=== PATIENT | male | born 1950 | race Caucasian/White ===

== ENCOUNTER → 2016-08-12 | Day surgery (SDC) | payer MEDICARE ==
[~2016-08-12] VITALS: Ht 182.9 cm; Wt 83.9 kg
[~2016-08-12] MED LIST: BUPIVACAINE HCL 0.25% 30 ML VIAL As Ordered ONE; BUPIVACAINE LIPOSOME/PF 1.3% 20ML (266MG/20ML) VIAL (EXPAREL) As Ordered ONE; CINN500C9 PO; GLUCTAB6 PO; LR 1,000 ML IV SCH; MAGN1TAB25 PO; MULTLIQ7 PO; NORCO, ANEXSIA 5/325MG TABLET (HYDROcodone/ACETAMINOPHEN) PO PRN; PERCOCET 5MG/325MG TAB PO PRN; PLANTAB PO; POTA80TA PO; fentaNYL 100 MCG/2 ML INJECTION (J3010) IV PRN
[2016-08-12 10:24] VITALS: BP 130/84
--- NOTE | 2016-08-12 23:54 | RO ---
DATE OF PROCEDURE: 08/12/2016 PREOPERATIVE DIAGNOSIS: Umbilical hernia. POSTOPERATIVE DIAGNOSIS: Umbilical hernia. PROCEDURE PERFORMED: Umbilical herniorrhaphy. SURGEON: Dr. Orlando Roche JOB CHECKER: Donna Goyal ANESTHESIA: General. INDICATIONS FOR PROCEDURE: The patient is a 66-year-old man with a small umbilical hernia for repair. DESCRIPTION OF PROCEDURE: The patient was placed under general endotracheal anesthesia. The patient's abdomen was prepped and draped in a sterile fashion. An approximately 3 cm curved infraumbilical transverse incision was made. The incision was deepened to the fascia. The umbilical skin was elevated. He was found to have a small fascial defect with some protruding preperitoneal fat. The peritoneum was not opened. The fibrofatty tissue was reduced beneath the fascia. The fascial edges were cleared. The defect was approximately 1.5 cm maximally. The fascial defect was closed transversely with interrupted simple sutures of #2-0 Ethibond. Some 0.25% Marcaine was infiltrated about the wound. The umbilical skin was tacked down to the fascia with a #3-0 Vicryl. The subcutaneous tissues were closed with Vicryl and the skin edges with a running subcuticular Vicryl as well. Steri-Strips were applied, followed by a light dressing. The patient tolerated the procedure well without apparent complication. He was awakened in the operating room, extubated and moved to the recovery room in stable condition.
== END | disposition home or self-care (01) ==
LOC: M SDC 06:18
PROVIDERS: ATTEND Surgery
DX: K42.9 Umbilical hernia without obstruction or gangrene (principal); K21.9 Gastro-esophageal reflux disease without esophagitis; F41.9 Anxiety disorder, unspecified; F32.9 Major depressive disorder, single episode, unspecified

== ENCOUNTER → 2017-04-12 | Outpatient (REF) | payer MEDICARE ==
[~2017-04-12] MED LIST changes: -BUPIVACAINE HCL 0.25% 30 ML VIAL As Ordered ONE; -BUPIVACAINE LIPOSOME/PF 1.3% 20ML (266MG/20ML) VIAL (EXPAREL) As Ordered ONE; -LR 1,000 ML IV SCH; -NORCO, ANEXSIA 5/325MG TABLET (HYDROcodone/ACETAMINOPHEN) PO PRN; -PERCOCET 5MG/325MG TAB PO PRN; -fentaNYL 100 MCG/2 ML INJECTION (J3010) IV PRN
[2017-04-12 14:45] LABS: ALBUMIN 3.9 GM/DL (3.2-5.2); ALBUMIN/GLOBULIN RATIO 1.44 (1.00-1.93); ALKALINE PHOSPHATASE 72 U/L (45-117); ALT/SGPT 27 U/L (12-78); ANION GAP 8 MEQ/L (8-16); AST/SGOT 13 U/L (15-37); BILIRUBIN,TOTAL 0.4 MG/DL (0.2-1.0); BLOOD UREA NITROGEN 21 MG/DL (7-18); CALCIUM LEVEL 8.8 MG/DL (8.8-10.2); CARBON DIOXIDE LEVEL 26 MEQ/L (21-32); CHLORIDE LEVEL 108 MEQ/L (98-107); CHOLESTEROL LEVEL 196 MG/DL (<200); CREATININE FOR GFR 1.26 MG/DL (0.70-1.30); GLOMERULAR FILTRATION RATE > 60.0 (>49); GLUCOSE, FASTING 100 MG/DL (80-110); POTASSIUM SERUM 4.3 MEQ/L (3.5-5.1); SODIUM LEVEL 142 MEQ/L (136-145); TOTAL PROTEIN 6.6 GM/DL (6.4-8.2); TRIGLYCERIDES LEVEL 148 MG/DL (<150)
== END ==
LOC: M SFHCADAM 08:03
PROVIDERS: ATTEND Family Medicine
DX: M76.62 Achilles tendinitis, left leg (principal); M19.042 Primary osteoarthritis, left hand; Z12.5 Encounter for screening for malignant neoplasm of prostate; Z79.899 Other long term (current) drug therapy
CPT/HCPCS: 80053; 80061; G0103

== ENCOUNTER → 2018-08-08 | Outpatient (REF) | payer MEDICARE ==
[2018-08-08 19:53] LABS: BLOOD UREA NITROGEN 21 MG/DL (7-18); CARBON DIOXIDE LEVEL 26 MEQ/L (21-32); CHLORIDE LEVEL 103 MEQ/L (98-107); CREATININE FOR GFR 1.21 MG/DL (0.70-1.30); GLOMERULAR FILTRATION RATE > 60.0 (>49); GLUCOSE, FASTING 82 MG/DL (70-100); SODIUM LEVEL 139 MEQ/L (136-145)
[2018-08-08 19:54] LABS: ALBUMIN 4.3 GM/DL (3.2-5.2); ALT/SGPT 38 U/L (12-78); BILIRUBIN,TOTAL 0.6 MG/DL (0.2-1.0); CALCIUM LEVEL 8.8 MG/DL (8.8-10.2); CHOLESTEROL LEVEL 247 MG/DL (<200); CHOLESTEROL RISK RATIO 5.488 (<5); FREE T4 1.07 NG/DL (0.76-1.46); HDL CHOLESTEROL 45 MG/DL (>40); LDL CHOLESTEROL 158 MG/DL (<100); NON-HDL-C 202 MG/DL; TOTAL PROTEIN 7.3 GM/DL (6.4-8.2); TRIGLYCERIDES LEVEL 219 MG/DL (<150)
== END ==
LOC: M SFHCADAM 12:32
PROVIDERS: ATTEND Family Medicine
DX: R73.03 Prediabetes (principal); Z12.5 Encounter for screening for malignant neoplasm of prostate; E78.2 Mixed hyperlipidemia; R35.0 Frequency of micturition; E78.5 Hyperlipidemia, unspecified
CPT/HCPCS: 80053; 80061; 83036; 84439; 84443; 87086; G0103

== ENCOUNTER → 2018-10-13 | Outpatient (REF) | payer MEDICARE | LOC: M SFHCPLAZ 17:09 | PROVIDERS: ATTEND Dermatology | DX: D23.39 Other benign neoplasm of skin of other parts of face (principal) ==

== ENCOUNTER → 2019-08-14 | Outpatient (REF) | payer MEDICARE ==
[~2019-08-14] MED LIST changes: -MAGN1TAB25 PO; +MAGN1TAB26 PO
[2019-08-14 13:16] LABS: ALBUMIN 4.2 GM/DL (3.2-5.2); BILIRUBIN,TOTAL 0.7 MG/DL (0.2-1.0); CHOLESTEROL RISK RATIO 5.341 (<5); CREATININE FOR GFR 1.33 MG/DL (0.70-1.30); GLOMERULAR FILTRATION RATE 56.6 (>42); POTASSIUM SERUM 4.6 MEQ/L (3.5-5.1); TOTAL PROTEIN 7.3 GM/DL (6.4-8.2)
[2019-08-14 14:19] LABS: HEMOGLOBIN A1c 7.4 %
== END ==
LOC: M SFHCADAM 09:18
PROVIDERS: ATTEND Family Medicine
DX: E78.5 Hyperlipidemia, unspecified (principal); R73.03 Prediabetes; Z12.5 Encounter for screening for malignant neoplasm of prostate
CPT/HCPCS: 80053; 80061; 83036; G0103

== ENCOUNTER → 2020-09-01 | Outpatient (REF) | payer MEDICARE ==
[2020-09-01 13:52] LABS: ALBUMIN 4.2 GM/DL (3.2-5.2); BILIRUBIN,TOTAL 0.4 MG/DL (0.2-1.0); CALCIUM LEVEL 9.4 MG/DL (8.8-10.2); CHOLESTEROL RISK RATIO 4.88 (<5); CREATININE FOR GFR 1.32 MG/DL (0.70-1.30); GLOMERULAR FILTRATION RATE 56.9 (>42); POTASSIUM SERUM 4.7 MEQ/L (3.5-5.1); TOTAL PROTEIN 6.7 GM/DL (6.4-8.2)
[2020-09-01 14:28] LABS: HEMOGLOBIN A1c 6.8 %
== END ==
LOC: M SFHCADAM 08:57
PROVIDERS: ATTEND Family Medicine
DX: E78.2 Mixed hyperlipidemia (principal); R73.03 Prediabetes; Z12.5 Encounter for screening for malignant neoplasm of prostate
CPT/HCPCS: 80053; 80061; 83036; G0103

== ENCOUNTER 2021-03-09 11:03 | Inpatient (IN) | payer OTHER, MEDICARE ==
[~2021-03-09] VITALS: Ht 182.9 cm; Wt 84.4 kg
[2021-03-09] MEDS ORDERED: ISOVUE-370 76% 100ML VIAL As Ordered ONE (11:45)
[2021-03-09 11:59] LABS: BASO # 0.1 10^3/uL (0.0-0.2); BASO % 0.4 % (0.0-1.0); EOS # 0.1 10^3/uL (0.0-0.5); EOS % 0.9 % (0.0-3.0); HEMATOCRIT 46.4 % (42.0-52.0); HEMOGLOBIN 15.8 g/dl (13.5-17.5); LYMPH # 1.7 10^3/uL (1.5-5.0); LYMPH % 12.6 % (24.0-44.0); MEAN CORPUSCULAR HEMOGLOBIN 31.3 pg (27.0-33.0); MEAN CORPUSCULAR HGB CONC 34.1 g/dl (32.0-36.5); MEAN CORPUSCULAR VOLUME 91.9 fl (80.0-96.0); MONO # 0.8 10^3/uL (0.0-0.8); MONO % 5.8 % (2.0-8.0); NEUTROPHILS # 10.8 10^3/uL (1.5-8.5); NEUTROPHILS % 79.5 % (36.0-66.0); PLATELET COUNT, AUTOMATED 216 10^3/uL (150-450); RED BLOOD COUNT 5.05 10^6/uL (4.30-6.10); WHITE BLOOD COUNT 13.5 10^3/uL (4.0-10.0)
[2021-03-09 12:13] LABS: INR 1.01; PROTHROMBIN TIME 13.7 SECONDS (12.7-14.5)
[2021-03-09 12:14] LABS: PARTIAL THROMBOPLASTIN TIME 28.6 SECONDS (25.9-37.0)
--- NOTE | 2021-03-09 12:17 | REP ---
INDICATION: Trauma. COMPARISON: None. TECHNIQUE: 5 x 5 mm contiguous transaxial sections were obtained from the skull base to the cerebral convexities using helical technique. FINDINGS: The ventricles and sulci are consistent with the patient's age. There are no extra-axial fluid collections. There is no mass effect. The deep cerebral white matter is consistent with the patient's age. The orbital and petrous structures, cerebellopontine angles, and posterior fossa are unremarkable. The sella turcica, cavernous, and paracavernous structures are essentially unremarkable. The visualized portions of the paranasal sinuses and mastoid air cells are clear. Images of the skull base show no gross abnormality. IMPRESSION: Essentially unremarkable CT examination of the brain. <Electronically signed by Jacob Alonso > 03/09/21 [id number]
--- NOTE | 2021-03-09 12:21 | REP ---
INDICATION: Trauma. COMPARISON: None. TECHNIQUE: 2 x 2 mm contiguous helical scanning with sagittal and coronal reconstructions FINDINGS: There is a 2 mm anterolisthesis of C4 on C5. There is C5-6 and C6-7 disc space narrowing with anterior and posterior osteophytic ridging. The facet joints are well aligned bilaterally. Vertebral body height is within normal limits. There is no evidence of an acute fracture. There is no abnormal paraspinal soft tissue swelling.. IMPRESSION: No evidence of an acute fracture. Chronic changes as described above. The anterolisthesis is likely secondary to positioning and chronic ligamentous changes. <Electronically signed by Jacob Alonso > 03/09/21 [id number]
--- NOTE | 2021-03-09 12:23 | REP ---
INDICATION: Trauma COMPARISON: None TECHNIQUE: Axial contrast enhanced images from the thoracic inlet to the upper abdomen with coronal and sagittal reformations using 75 ml Isovue 370 intravenous contrast material. This CT examination was performed using the following dose reduction techniques: Automated exposure control, adjustment of mA and/or kv according to the patient's size, and use of iterative reconstruction technique. FINDINGS: The lung fortune demonstrate lower lobe opacities suggesting atelectasis and or elements of pulmonary parenchymal contusions given history of trauma. No effusion. No pneumothorax. Tracheobronchial tree is patent. Mediastinal structures including thoracic aorta, pulmonary vasculature, and heart/pericardium without evidence for injury. No mediastinal fluid collection or hematoma. Mild incidental atherosclerotic changes to the thoracic aorta and coronary arteries are identified. No evidence for adenopathy. There is a comminuted relatively nondisplaced fracture of the sternum with subtle overlying soft tissue swelling (series 501; images 59-70). Remainder of the osseous structures appear relatively intact. IMPRESSION: 1. Lower lobe opacities likely representing elements of atelectasis and parenchymal contusions. 2. Comminuted relatively nondisplaced fracture swelling. Of the sternum with mild overlying soft tissue <Electronically signed by Car Warren > 03/09/21 [id number]
[2021-03-09 12:26] LABS: ALBUMIN 3.7 GM/DL (3.2-5.2); ALT/SGPT 42 U/L (12-78); AMYLASE 47 U/L (25-115); BILIRUBIN,DIRECT 0.1 MG/DL (0.0-0.2); BILIRUBIN,TOTAL 0.3 MG/DL (0.2-1.0); CK-MB VALUE MASS 1.8 NG/ML (<3.6); CPK CREATINE PHOSPHOKINASE 93 U/L (39-308); LIPASE 131 U/L (73-393); MB/CK RELATIVE INDEX 1.94 (< OR =4); TOTAL PROTEIN 6.6 GM/DL (6.4-8.2); TROPONIN I < 0.02 NG/ML (< 0.10)
--- NOTE | 2021-03-09 12:28 | REP ---
INDICATION: Trauma. COMPARISON: None TECHNIQUE: Axial contrast-enhanced images from the lung bases to the pubic symphysis using 100 cc Isovue 370 intravenous contrast material. Coronal and sagittal reformations obtained. This CT examination was performed using the following dose reduction techniques: Automated exposure control, adjustment of mA and/or kv according to the patient's size, and the use of iterative reconstruction technique. FINDINGS: There is no evidence for solid organ injury. Liver demonstrates few scattered benign appearing cysts measuring up to 1.8 cm diameter. Spleen demonstrates small calcifications suggesting prior granulomatous disease. Kidneys demonstrate age-related cortical thinning and asymmetric large left peripelvic cysts measuring in total 5.4 cm maximal diameter. The enteric system including stomach, small, and large bowel appears normal. No evidence for obstruction or acute inflammatory process. Normal terminal ileum and appendix are identified in the right lower quadrant. Pelvis demonstrates normal bladder and age-appropriate prostate/seminal vesicles. No ascites. No free air. No intraperitoneal or retroperitoneal adenopathy. Abdominal aorta and vasculature appear normal. Incidental retroaortic left renal vein noted. Musculoskeletal structures are intact and without acute trauma/injury. Lung bases demonstrate bibasilar opacities consistent with atelectasis and contusions and nondisplaced comminuted sternal fracture. IMPRESSION: No acute abdominopelvic trauma/injury appreciated. Nonacute findings including hepatic and presumed left renal cysts. <Electronically signed by Car Warren > 03/09/21 [id number]
[2021-03-09] MEDS ORDERED: ONDANSETRON 4MG/2ML VIAL IV ONE (12:35)
[2021-03-09] MEDS: fentaNYL 100 MCG/2 ML INJECTION (J3010) IV PRN ×2 (12:39→13:34)
[2021-03-09 13:27] LABS: RSV AMPLIFICATION NEGATIVE (NEGATIVE)
[2021-03-09] MEDS ORDERED: MORPHINE 4 MG/ML 1ML VIAL/SYRINGE (J2270) IV PRN (13:45)
[2021-03-09] MEDS ORDERED: CHOL1CAP PO (13:48)
[2021-03-09] MEDS ORDERED: CINN500C2 PO (13:48)
[2021-03-09] MEDS ORDERED: D31000TA2 PO (13:48)
[2021-03-09] MEDS ORDERED: MAGN500T12 PO (13:48)
[2021-03-09] MEDS ORDERED: MULTTAB61 PO (13:48)
[2021-03-09] MEDS ORDERED: ZINC1TAB2 PO (13:48)
[2021-03-09] MEDS ORDERED: APPLCAP PO (13:48)
[2021-03-09] MEDS ORDERED: HOME MED LIST COMPLETE! XX SCH (13:50)
[2021-03-09] MEDS: KETOROLAC 30 MG/ML 1ML VIAL IV SCH ×2 (15:19→20:17)
[2021-03-09 16:00] VITALS: BP 157/80
[2021-03-09] MEDS ORDERED: SLF 3 ML SYR IV PRN (16:35)
[2021-03-09] MEDS: NORCO, ANEXSIA 5/325MG TABLET (HYDROcodone/ACETAMINOPHEN) PO PRN ×2 (17:02→23:37)
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
[2021-03-09 20:00] VITALS: BP 151/72
[2021-03-09] MEDS: SLF 3 ML SYR IV SCH (20:33)
--- NOTE | 2021-03-09 21:39 | ECGEPIP ---
[facility] - ED Test Date: 2021-03-09 Pat Name: SHENG ADHIKARI Department: Room: - Gender: Male Returned Item Clerk: : 1950 Requested By: Pillo Tobin Order Number: [id number] Reading MD: Pillo Blanchard Measurements Intervals [place] Rate: 53 P: 52 GA: 166 QRS: -40 QRSD: 88 T: 44 QT: 430 QTc: 403 Interpretive Statements Sinus bradycardia POOR R WAVE PROGRESSION Left axis deviation NO PRIORS FOR COMPARISON Electronically Signed on 03-09-2021 21:39:10 EDT by Pillo Blanchard
[2021-03-09 23:56] VITALS: BP 147/78
[2021-03-10] MEDS: KETOROLAC 30 MG/ML 1ML VIAL IV SCH ×2 (01:39→07:57)
[2021-03-10 04:00] VITALS: BP 132/70
[2021-03-10] MEDS ORDERED: CALCIUM CARBONATE 500 MG CHEW U/D PO PRN (05:00)
[2021-03-10 05:23] LABS: BASO % 0.3 % (0.0-1.0); EOS # 0.3 10^3/uL (0.0-0.5); EOS % 2.2 % (0.0-3.0); HEMATOCRIT 39.9 % (42.0-52.0); LYMPH # 2.7 10^3/uL (1.5-5.0); LYMPH % 22.3 % (24.0-44.0); MEAN CORPUSCULAR HEMOGLOBIN 30.9 pg (27.0-33.0); MEAN CORPUSCULAR HGB CONC 33.6 g/dl (32.0-36.5); MEAN CORPUSCULAR VOLUME 91.9 fl (80.0-96.0); MONO # 1.1 10^3/uL (0.0-0.8); NEUTROPHILS # 7.9 10^3/uL (1.5-8.5); NEUTROPHILS % 65.6 % (36.0-66.0); PLATELET COUNT, AUTOMATED 174 10^3/uL (150-450); RED BLOOD COUNT 4.34 10^6/uL (4.30-6.10); WHITE BLOOD COUNT 12.1 10^3/uL (4.0-10.0)
[2021-03-10 05:26] LABS: HEMOGLOBIN 13.4 g/dl (13.5-17.5)
[2021-03-10] MEDS: NORCO, ANEXSIA 5/325MG TABLET (HYDROcodone/ACETAMINOPHEN) PO PRN (05:39)
[2021-03-10] MEDS: SLF 3 ML SYR IV SCH (05:39)
[2021-03-10 05:46] LABS: ALBUMIN 2.9 GM/DL (3.2-5.2); ALT/SGPT 33 U/L (12-78); AMYLASE 43 U/L (25-115); BILIRUBIN,TOTAL 0.3 MG/DL (0.2-1.0); BLOOD UREA NITROGEN 26 MG/DL (7-18); CALCIUM LEVEL 8.3 MG/DL (8.8-10.2); CARBON DIOXIDE LEVEL 31 MEQ/L (21-32); CHLORIDE LEVEL 107 MEQ/L (98-107); CREATININE FOR GFR 1.18 MG/DL (0.70-1.30); GLOMERULAR FILTRATION RATE > 60.0 (>42); GLUCOSE, FASTING 151 MG/DL (70-100); LIPASE 171 U/L (73-393); POTASSIUM SERUM 3.8 MEQ/L (3.5-5.1); SODIUM LEVEL 141 MEQ/L (136-145)
[2021-03-10 08:00] VITALS: BP 153/72
--- NOTE | 2021-03-10 08:24 | REP ---
INDICATION: sternal fracture COMPARISON: Chest CT dated 03/09/2021 TECHNIQUE: PA and lateral. FINDINGS: Cardiac silhouette is normal. Mediastinum is unremarkable. Lateral view demonstrates known sternal fracture. Lung fortune demonstrate mild bibasilar atelectasis and possible small pleural reactions. No pneumothorax. IMPRESSION: Mild bibasilar atelectasis and possible small pleural reactions. <Electronically signed by Car Warren > 03/10/21 1407
[2021-03-10] MEDS ORDERED: HYDR-3715 PO (10:03)
[2021-03-10] MEDS ORDERED: KETO10TAB PO (10:03)
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
--- NOTE | 2021-03-10 19:59 | ECGEPIP ---
[facility] Test Date: 2021-03-10 Pat Name: SHENG ADHIKARI Department: Room: [place] [address] Gender: Male Program Supervisor: manolo : 1950 Requested By: REMEDIOS Austin Order Number: [id number] Reading MD: Mp Sinclair Measurements Intervals [place] Rate: 54 P: 41 TX: 156 QRS: -33 QRSD: 86 T: 16 QT: 418 QTc: 396 Interpretive Statements Sinus bradycardia Left axis deviation Delayed anterior R wave progression Nonspecific T wave abnormality Similar to tracing done 03-09-21 Electronically Signed on 03-10-2021 19:59:00 EDT by Mp Sinclair
== END 2021-03-10 12:26 | disposition home or self-care (01) | DRG 135 ==
LOC: EDBD 11:03 → M ED 11:03 → M ED INP 13:43 → ENRESERV 14:30 → M PCU 16:22
PROVIDERS: ADMIT Surgery; ATTEND Surgery
DX: S22.20XA Unspecified fracture of sternum, initial encounter for closed fracture (principal); S27.322A Contusion of lung, bilateral, initial encounter; M17.0 Bilateral primary osteoarthritis of knee; N40.0 Benign prostatic hyperplasia without lower urinary tract symptoms; N52.9 Male erectile dysfunction, unspecified; K21.9 Gastro-esophageal reflux disease without esophagitis; Z20.822 Contact with and (suspected) exposure to COVID-19; Z79.899 Other long term (current) drug therapy; E78.5 Hyperlipidemia, unspecified; V43.52XA Car driver injured in collision with other type car in traffic accident, initial encounter; Y92.410 Unspecified street and highway as the place of occurrence of the external cause; Y99.8 Other external cause status; Y93.89 Activity, other specified

== ENCOUNTER → 2021-04-16 | Outpatient (CLI) | payer OTHER, MEDICARE ==
[~2021-04-16] MED LIST changes: +APPLCAP PO; +CHOL1CAP PO; +CINN500C2 PO; +D31000TA2 PO; +HYDR-3715 PO; +KETO10TAB PO; +MAGN500T12 PO; +MULTTAB61 PO; +ZINC1TAB2 PO
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
== END ==
LOC: M RAD 08:15
PROVIDERS: ATTEND Surgery
DX: S22.23XD Sternal manubrial dissociation, subsequent encounter for fracture with routine healing (principal); W18.30XD Fall on same level, unspecified, subsequent encounter; Y92.009 Unspecified place in unspecified non-institutional (private) residence as the place of occurrence of the external cause

== ENCOUNTER → 2021-05-22 | Outpatient (CLI) | payer MEDICARE | LOC: M LABSMTC 11:13 | PROVIDERS: ATTEND Family Medicine | DX: Z11.52 Encounter for screening for COVID-19 (principal) | CPT/HCPCS: C9803; U0003 ==

== ENCOUNTER → 2021-06-03 | Outpatient (REF) | payer MEDICARE ==
[2021-06-03 12:53] LABS: HEMOGLOBIN A1c 6.8 %
[2021-06-03 13:09] LABS: BLOOD UREA NITROGEN 24 MG/DL (7-18); CALCIUM LEVEL 10.1 MG/DL (8.8-10.2); CARBON DIOXIDE LEVEL 30 MEQ/L (21-32); CHLORIDE LEVEL 104 MEQ/L (98-107); CREATININE FOR GFR 1.23 MG/DL (0.70-1.30); GLOMERULAR FILTRATION RATE > 60.0 (>42); GLUCOSE, FASTING 148 MG/DL (70-100); SODIUM LEVEL 140 MEQ/L (136-145)
== END ==
LOC: M SFHCADAM 08:13
PROVIDERS: ATTEND Family Medicine
DX: E11.9 Type 2 diabetes mellitus without complications (principal)

== ENCOUNTER → 2021-09-03 | Outpatient (REF) | payer MEDICARE | LOC: M LAB REF 17:00 | PROVIDERS: ATTEND Family Medicine | DX: C44.329 Squamous cell carcinoma of skin of other parts of face (principal) ==

== ENCOUNTER → 2021-12-16 | Outpatient (CLI) | payer MEDICARE ==
[~2021-12-16] MED LIST changes: -D31000TA2 PO; -GLUCTAB6 PO; +GLUCTAB7 PO; +VITA100093 PO
[2021-12-16 13:07] LABS: HEMATOCRIT 45.3 % (42.0-52.0); HEMOGLOBIN 15.2 g/dl (13.5-17.5); MEAN CORPUSCULAR HEMOGLOBIN 31.3 pg (27.0-33.0); MEAN CORPUSCULAR HGB CONC 33.6 g/dl (32.0-36.5); MEAN CORPUSCULAR VOLUME 93.4 fl (80.0-96.0); PLATELET COUNT, AUTOMATED 172 10^3/uL (150-450); RED BLOOD COUNT 4.85 10^6/uL (4.30-6.10)
[2021-12-16 13:31] LABS: HEMOGLOBIN A1c 6.1 %
[2021-12-16 13:43] LABS: ALBUMIN 3.8 GM/DL (3.2-5.2); ALT/SGPT 30 U/L (12-78); BILIRUBIN,TOTAL 0.4 MG/DL (0.2-1.0); BLOOD UREA NITROGEN 27 MG/DL (7-18); CALCIUM LEVEL 8.9 MG/DL (8.8-10.2); CARBON DIOXIDE LEVEL 26 MEQ/L (21-32); CHLORIDE LEVEL 111 MEQ/L (98-107); CHOLESTEROL LEVEL 182 MG/DL (<200); CHOLESTEROL RISK RATIO 4.044 (<5); CREATININE FOR GFR 1.22 MG/DL (0.70-1.30); GLOMERULAR FILTRATION RATE > 60.0 (>42); GLUCOSE, FASTING 106 MG/DL (70-100); HDL CHOLESTEROL 45 MG/DL (>40); LDL CHOLESTEROL 120 MG/DL (<100); NON-HDL-C 137 MG/DL; POTASSIUM SERUM 4.1 MEQ/L (3.5-5.1); SODIUM LEVEL 141 MEQ/L (136-145); TOTAL PROTEIN 6.4 GM/DL (6.4-8.2); TRIGLYCERIDES LEVEL 85 MG/DL (<150)
== END ==
LOC: M ADAMS 08:10
PROVIDERS: ATTEND Family Medicine
DX: N18.31 Chronic kidney disease, stage 3a (principal); E11.9 Type 2 diabetes mellitus without complications; E78.2 Mixed hyperlipidemia

== ENCOUNTER → 2022-02-17 | Outpatient (CLI) | payer MEDICARE ==
[2022-02-17 14:11] LABS: BASO % 0.4 % (0.0-1.0); EOS # 0.2 10^3/uL (0.0-0.5); EOS % 1.7 % (0.0-3.0); HEMATOCRIT 48.1 % (42.0-52.0); HEMOGLOBIN 15.9 g/dl (13.5-17.5); LYMPH # 1.6 10^3/uL (1.5-5.0); LYMPH % 15.6 % (24.0-44.0); MEAN CORPUSCULAR HEMOGLOBIN 30.8 pg (27.0-33.0); MEAN CORPUSCULAR HGB CONC 33.1 g/dl (32.0-36.5); MONO # 1.1 10^3/uL (0.0-0.8); NEUTROPHILS # 7.1 10^3/uL (1.5-8.5); NEUTROPHILS % 70.9 % (36.0-66.0); PLATELET COUNT, AUTOMATED 193 10^3/uL (150-450); RED BLOOD COUNT 5.17 10^6/uL (4.30-6.10)
[2022-02-17 14:42] LABS: ERYTHROCYTE SEDIMENTATION RATE 3 mm/hr (0-20)
[2022-02-17 15:07] LABS: ALBUMIN 3.6 GM/DL (3.2-5.2); ALT/SGPT 26 U/L (12-78); BILIRUBIN,TOTAL 0.6 MG/DL (0.2-1.0); BLOOD UREA NITROGEN 24 MG/DL (7-18); C REACTIVE PROTEIN QUANTITATIV 3.09 MG/DL (0.00-0.30); CARBON DIOXIDE LEVEL 25 MEQ/L (21-32); CHLORIDE LEVEL 111 MEQ/L (98-107); CREATININE FOR GFR 1.17 MG/DL (0.70-1.30); GLOMERULAR FILTRATION RATE > 60.0 (>42); GLUCOSE, FASTING 103 MG/DL (70-100); POTASSIUM SERUM 4.5 MEQ/L (3.5-5.1); SODIUM LEVEL 142 MEQ/L (136-145); TOTAL PROTEIN 6.3 GM/DL (6.4-8.2)
== END ==
LOC: M PLALAB 12:04
PROVIDERS: ATTEND Physician Assistant
DX: R19.7 Diarrhea, unspecified (principal); R52 Pain, unspecified; R53.83 Other fatigue; R25.2 Cramp and spasm; Z86.19 Personal history of other infectious and parasitic diseases

== ENCOUNTER → 2022-06-29 | Outpatient (REF) | payer MEDICARE ==
[2022-06-29 14:37] LABS: HEMATOCRIT 51.2 % (42.0-52.0); HEMOGLOBIN 16.3 g/dl (13.5-17.5); MEAN CORPUSCULAR HEMOGLOBIN 30.1 pg (27.0-33.0); MEAN CORPUSCULAR HGB CONC 31.8 g/dl (32.0-36.5); MEAN CORPUSCULAR VOLUME 94.6 fl (80.0-96.0); PLATELET COUNT, AUTOMATED 219 10^3/uL (150-450); RED BLOOD COUNT 5.41 10^6/uL (4.30-6.10); WHITE BLOOD COUNT 10.3 10^3/uL (4.0-10.0)
[2022-06-29 15:09] LABS: ALBUMIN 4.1 G/DL (3.2-5.2); ALKALINE PHOSPHATASE 63 U/L (46-116); ALT/SGPT 33 U/L (7.0-40); AST/SGOT 18 U/L (<34); BILIRUBIN,TOTAL 0.5 MG/DL (0.3-1.2); BLOOD UREA NITROGEN 35 MG/DL (9-23); CALCIUM LEVEL 9.9 MG/DL (8.3-10.6); CARBON DIOXIDE LEVEL 28 MMOL/L (20-31); CHLORIDE LEVEL 104 MMOL/L (98-107); CHOLESTEROL LEVEL 232 MG/DL (<200); CHOLESTEROL RISK RATIO 4.76 (<5); CREATININE FOR GFR 1.14 MG/DL (0.70-1.30); GLOMERULAR FILTRATION RATE > 60.0 (>42); GLUCOSE, FASTING 120 MG/DL (74-106); HDL CHOLESTEROL 48.7 MG/DL (>40); LDL CHOLESTEROL 157.9 MG/DL (<100); NON-HDL-C 183 MG/DL; POTASSIUM SERUM 4.9 MMOL/L (3.5-5.1); SODIUM LEVEL 141 MMOL/L (136-145); TRIGLYCERIDES LEVEL 127 MG/DL (<150)
[2022-06-29 18:31] LABS: HEMOGLOBIN A1c 5.6 % (4.0-6.0)
== END ==
LOC: M SFHCADAM 08:03
PROVIDERS: ATTEND Family Medicine
DX: N18.31 Chronic kidney disease, stage 3a (principal); E11.9 Type 2 diabetes mellitus without complications; E78.2 Mixed hyperlipidemia; Z12.5 Encounter for screening for malignant neoplasm of prostate
CPT/HCPCS: 80053; 80061; 83036; 85027; G0103

== ENCOUNTER 2023-11-16 11:57 | Day surgery (SDC) | payer MEDICARE ==
[~2023-11-16] VITALS: Ht 182.9 cm; Wt 67.2 kg
[~2023-11-16 11:57] MED LIST changes: +CVS1CHW13 PO; +NS 1,000 ML IV ONE; +ZINC220CA PO
[2023-11-16] MEDS ORDERED: LIDOCAINE 2% 100MG/5ML SDV (FOR ANES.) As Ordered ONE (14:25)
[2023-11-16] MEDS ORDERED: propofoL 200 MG/20 ML VIAL As Ordered ONE (14:25)
[2023-11-16 14:54] VITALS: BP 130/80; TEMP 97.7; O2SAT 96
== END 2023-11-16 14:55 | disposition home or self-care (01) ==
LOC: M OPP 11:57
PROVIDERS: ATTEND Surgery
DX: Z12.11 Encounter for screening for malignant neoplasm of colon (principal); K63.5 Polyp of colon; K57.30 Diverticulosis of large intestine without perforation or abscess without bleeding; D17.5 Benign lipomatous neoplasm of intra-abdominal organs; Z86.010 Personal history of colon polyps; N40.0 Benign prostatic hyperplasia without lower urinary tract symptoms; Z79.899 Other long term (current) drug therapy; Z90.49 Acquired absence of other specified parts of digestive tract